=== PATIENT | female | born 1940 | race Caucasian/White ===

== ENCOUNTER 2021-05-14 16:01 | Emergency (ER) | payer OTHER ==
[2021-05-14 16:08] VITALS: BP 126/68; PULSE 68; TEMP 97; BMI 25.4
== END 2021-05-14 17:05 | disposition home or self-care (01) ==
LOC: JER 16:01
DX: T22.211A Burn of second degree of right forearm, initial encounter (principal); X19.XXXA Contact with other heat and hot substances, initial encounter
CPT/HCPCS: 99283-25